=== PATIENT | female | born 1990 | race Caucasian/White ===

== ENCOUNTER 2016-05-31 22:47 | Inpatient (IN) | payer OTHER ==
[2016-05-31 23:46] LABS: BILIRUBIN NEGATIVE (NEGATIVE); BLOOD NEGATIVE Ery/uL (NEGATIVE); CLARITY CLEAR (CLEAR); COLOR YELLOW (YELLOW); GLUCOSE (U) NORMAL (NORMAL); KETONE (U) TRACE mg/dL (NEGATIVE); LEUKOCYTES NEGATIVE Leu/uL (NEGATIVE); NITRITE NEGATIVE (NEGATIVE); PROTEIN NEGATIVE (NEGATIVE); SPECIFIC GRAVITY >=1.030 (1.001-1.030); UROBILINOGEN 0.2 mg/dL (0.2-1.0); pH 5.5 (5.0-9.0)
[2016-06-01 00:12] LABS: BASOPHIL 0.2 % (0-2); EOSINOPHIL 0.5 % (0-5); HCT 44.1 % (37.0-47.0); HGB 15.5 g/dl (12.5-16.0); LYMPHOCYTE 7.6 % (15-48); MCH 29.8 pg (25.0-31.0); MCHC 35.1 g/dL (32.0-36.0); MCV 84.8 fL (78.0-100.0); MONOCYTE 6.2 % (0-12); MPV 10.6 fL (6.0-9.5); NEUTROPHIL 85.5 % (41-80); PLT 247 K/uL (150-400); WBC 15.1 K/uL (4.0-10.5)
[2016-06-01 00:28] LABS: ALBUMIN 4.7 g/dL (3.5-5.0); BILIRUBIN - TOTAL 0.4 mg/dL (0.1-1.0); CREATININE 0.6 mg/dL (0.5-1.0); GLOBULIN (CALCULATION) 3.1 g/dL (2.2-4.2); POTASSIUM 3.6 mmol/L (3.5-5.1); TOTAL PROTEIN 7.8 g/dL (6.4-8.3)
[2016-06-01 09:22] LABS: HCT 38.8 % (37.0-47.0); HGB 13.4 g/dl (12.5-16.0); MCH 29.6 pg (25.0-31.0); MCHC 34.5 g/dL (32.0-36.0); MCV 85.7 fL (78.0-100.0); MPV 10.4 fL (6.0-9.5); RBC 4.53 M/uL (4.20-5.40); RDW 13.2 % (11.5-14.0); WBC 7.2 K/uL (4.0-10.5)
[2016-06-01 09:42] LABS: ALBUMIN 3.9 g/dL (3.5-5.0); BILIRUBIN - TOTAL 0.3 mg/dL (0.1-1.0); CREATININE 0.6 mg/dL (0.5-1.0); GLOBULIN (CALCULATION) 2.3 g/dL (2.2-4.2); POTASSIUM 3.9 mmol/L (3.5-5.1); TOTAL PROTEIN 6.2 g/dL (6.4-8.3)
== END 2016-06-02 15:24 | disposition home or self-care (01) | DRG 392 ==
LOC: FER 22:47 → FICU 06-01 02:20 → FMS 06-01 09:00
PROVIDERS: Nurse Practitioner Family; ADMIT Internal Medicine
DX: K52.9 Noninfective gastroenteritis and colitis, unspecified (principal); K80.20 Calculus of gallbladder without cholecystitis without obstruction; D72.829 Elevated white blood cell count, unspecified
CPT/HCPCS: 36415; 76705; 80053; 81003; 82150; 83690; 85025; J1170; J1885; J2270; J2405; Q9967

== ENCOUNTER 2020-08-06 10:31 | Emergency (ER) | payer OTHER ==
[2020-08-06 12:12] LABS: BASOPHIL 0.3 % (0-2); EOSINOPHIL 0.2 % (0-5); HCT 40.4 % (37.0-47.0); LYMPHOCYTE 11.6 % (15-48); MCH 28.3 pg (25.0-31.0); MCHC 34.7 g/dL (32.0-36.0); MCV 81.6 fL (78.0-100.0); MONOCYTE 8.7 % (0-12); MPV 10.7 fL (6.0-9.5); NEUTROPHIL 78.5 % (41-80); NRBC 0; PLT 240 K/uL (150-400); RBC 4.95 M/uL (4.20-5.40); RDW 13.4 % (11.5-14.0); WBC 11.8 K/uL (4.0-10.5)
[2020-08-06 12:12] LABS: BILIRUBIN 1+ mg/dL (NEGATIVE); BLOOD NEGATIVE Ery/uL (NEGATIVE); CLARITY CLEAR (CLEAR); COLOR YELLOW (YELLOW); GLUCOSE (U) NORMAL (NORMAL); LEUKOCYTES NEGATIVE Leu/uL (NEGATIVE); NITRITE NEGATIVE (NEGATIVE); PROTEIN TRACE (LOW) mg/dL (NEGATIVE); UROBILINOGEN 0.2 mg/dL (0.2-1.0); pH 6.5 (5.0-9.0)
[2020-08-06 12:20] LABS: BACTERIA 1+; URINARY WBC RARE
[2020-08-06 12:49] LABS: ALBUMIN 3.9 g/dL (3.4-5.0); BILIRUBIN - TOTAL 0.7 mg/dL (0.2-1.0); BUN/CREAT RATIO (CALC) 12.8 RATIO; CREATININE 0.86 mg/dL (0.51-0.95); GLOBULIN (CALCULATION) 3.8 g/dL; POTASSIUM 3.6 mmol/L (3.5-5.1); TOTAL PROTEIN 7.7 g/dL (6.4-8.2)
[2020-08-06 12:58] LABS: CORONAVIRUS 2019 SARS-COV-2 NEGATIVE (NEGATIVE); INFLUENZA A NAA NEGATIVE (NEGATIVE)
[2020-08-06] MEDS ORDERED: PHENERGAN25 M1 PO (13:18)
== END 2020-08-06 13:27 | disposition home or self-care (01) ==
LOC: FER 10:31
PROVIDERS: Emergency Medicine
DX: B34.9 Viral infection, unspecified (principal); R19.7 Diarrhea, unspecified; I10 Essential (primary) hypertension; Z87.19 Personal history of other diseases of the digestive system; Z20.822 Contact with and (suspected) exposure to COVID-19
CPT/HCPCS: 36415; 71045; 80053; 81001; 85025; J1885; J2550; J7120; U0002

== ENCOUNTER 2020-09-30 12:28 | Emergency (ER) | payer OTHER ==
[~2020-09-30 12:28] MED LIST: PHENERGAN25 M1 PO
[2020-09-30 13:51] LABS: BASOPHIL 0.3 % (0-2); BILIRUBIN 2+ mg/dL (NEGATIVE); BLOOD NEGATIVE Ery/uL (NEGATIVE); CLARITY CLEAR (CLEAR); COLOR YELLOW (YELLOW); EOSINOPHIL 0.1 % (0-5); GLUCOSE (U) NORMAL (NORMAL); HCT 39.2 % (37.0-47.0); HGB 13.5 g/dl (12.5-16.0); LEUKOCYTES NEGATIVE Leu/uL (NEGATIVE); LYMPHOCYTE 21.6 % (15-48); MCH 28.4 pg (25.0-31.0); MCHC 34.4 g/dL (32.0-36.0); MCV 82.5 fL (78.0-100.0); NEUTROPHIL 70.7 % (41-80); NITRITE NEGATIVE (NEGATIVE); NRBC 0; PLT 255 K/uL (150-400); PROTEIN TRACE (LOW) mg/dL (NEGATIVE); RBC 4.75 M/uL (4.20-5.40); RDW 13.1 % (11.5-14.0); UROBILINOGEN 0.2 mg/dL (0.2-1.0); WBC 11.6 K/uL (4.0-10.5); pH 6.5 (5.0-9.0)
[2020-09-30 14:00] LABS: BACTERIA 2+; SQUAMOUS EPITHELIAL CELLS 20-50
[2020-09-30 14:11] LABS: ALBUMIN 4.3 g/dL (3.4-5.0); BILIRUBIN - TOTAL 0.5 mg/dL (0.2-1.0); BUN/CREAT RATIO (CALC) 12.7 RATIO; CREATININE 0.71 mg/dL (0.51-0.95); GLOBULIN (CALCULATION) 3.6 g/dL; POTASSIUM 2.8 mmol/L (3.5-5.1); TOTAL PROTEIN 7.9 g/dL (6.4-8.2)
[2020-09-30] MEDS ORDERED: K-DUR20 MEQ PO (16:41)
[2020-09-30] MEDS ORDERED: BACTRIM DS TAB1 EACH PO (16:41)
[2020-09-30] MEDS ORDERED: ZOFRAN4 M1 PO (16:41)
== END 2020-09-30 17:01 | disposition home or self-care (01) ==
LOC: FER 12:28
PROVIDERS: Nurse Practitioner Family
DX: R10.84 Generalized abdominal pain (principal); R11.2 Nausea with vomiting, unspecified; R19.7 Diarrhea, unspecified; N39.0 Urinary tract infection, site not specified; E87.6 Hypokalemia; I10 Essential (primary) hypertension
CPT/HCPCS: 36415; 80053; 81001; 82150; 83690; 85025; 87088; J0696; J1885; J2405; J2550; J3480; J7030; Q9967